=== PATIENT | male | born 1975 | race African-American/Black ===

== ENCOUNTER → 2017-01-29 | Outpatient (CLI) | payer BC ==
[~2017-01-29] MED LIST: HYDR-3419 PO; MULT-506 PO; NERVE TONIC PO; VIT D PO
--- NOTE | 2017-01-29 16:09 | DIAGNOSTIC IMAGING REPORT ---
THYROID ULTRASOUND HISTORY: Nodular thyroid E04.1 Non-toxic uninodular [id number] COMPARISON: 01/24/2016 FINDINGS: Right lobe: Maximum dimension 4.6 cm. Slightly inhomogeneous internal architecture unchanged Left lobe: 4.6 cm maximum dimension. 2.3 cm complex nodule mid left thyroid essentially unchanged from the prior exam. Isthmus: No nodules. IMPRESSION: Complex nodule left thyroid measuring 2.3 cm. This is unchanged from the prior study. Mild thyroid in homogeneity also unchanged Electronically signed by: Damion Dodd M.D. 01/29/2017 4:07 PM Dictated Date/Time: 01/29/2017 4:05 PM
== END | disposition home or self-care (01) ==
LOC: C.ULTR 15:35
PROVIDERS: ATTEND Physician Assistant Medical
DX: E04.1 Nontoxic single thyroid nodule (principal)

== ENCOUNTER → 2018-02-22 | Outpatient (CLI) | payer OTHER ==
--- NOTE | 2018-02-22 08:37 | DIAGNOSTIC IMAGING REPORT ---
THYROID ULTRASOUND CLINICAL HISTORY: Nontoxic uninodular goiter. COMPARISON STUDY: Thyroid ultrasound January 29, 2017 and ultrasound-guided fine needle aspiration of left lobe thyroid nodule January 15, 2015. TECHNIQUE: Sonography of the thyroid gland was performed. FINDINGS: The right thyroid lobe measures 4.2 x 1.8 x 1.2 cm and the left thyroid lobe measures 4.1 x 2.4 x 1.5 cm. Note is made of a solid and cystic nodule within the mid to lower pole the left lobe that measures 2.5 x 2 x 1.1 cm. This is similar to previous exam when allowing for measurement variability. This contains echogenic foci with possible, tail artifact. No additional thyroid nodules are present. The nodule was previously biopsied. IMPRESSION: No change in size of the previously biopsied left lobe thyroid nodule. Electronically signed by: Tucker Soto M.D. 02/22/2018 8:36 AM Dictated Date/Time: 02/22/2018 8:25 AM
== END | disposition home or self-care (01) ==
LOC: C.ULTR 07:57
PROVIDERS: ATTEND Physician Assistant
DX: E04.1 Nontoxic single thyroid nodule (principal)